=== PATIENT | male | born 1980 | race African-American/Black ===

== ENCOUNTER 2023-10-05 00:52 | Inpatient (IN) | payer OTHER ==
[2023-10-05] VITALS (20 sets, daily range): BP systolic 114–146; BP diastolic 59–100; PULSE 81–116; RESP 17–35; TEMP 97.5–98; O2SAT 92–100
[~2023-10-05] VITALS: Ht 165.1 cm; Wt 65.8 kg
[2023-10-05] MEDS: IPRATROPIUM 0.02% 0.5 MG/2.5 ML NEBU INH ONE (01:09)
[2023-10-05] MEDS: ALBUTEROL 0.083% 2.5 MG/3 ML NEBU INH ONE (01:10)
[2023-10-05 01:17] LABS: BASOPHILS # (AUTO) 0.1 K/uL (0.00-0.22); BASOPHILS % (AUTO) 0.8 % (0.0-2.0); EOSINOPHILS # (AUTO) 0.8 K/uL (0-0.4); EOSINOPHILS % (AUTO) 4.6 % (0.0-4.0); HEMATOCRIT 46.4 % (36-52); HEMOGLOBIN 15.6 g/dL (12.0-18.0); LYMPHOCYTES # (AUTO) 2.3 K/uL (2.0-11.5); LYMPHOCYTES % (AUTO) 12.9 % (20.5-51.1); MEAN CORPUSCULAR HEMOGLOBIN 32 pg (27-31); MEAN CORPUSCULAR HGB CONC 34 g/dL (33-37); MEAN CORPUSCULAR VOLUME 93.5 fL (80-94); MONOCYTES # (AUTO) 1.3 K/uL (0.8-1.0); MONOCYTES % (AUTO) 7.3 % (1.7-9.3); NEUTROPHILS # (AUTO) 13.4 K/uL (1.8-7.7); NEUTROPHILS % (AUTO) 74.4 % (42.2-75.2); PLATELET COUNT (AUTO) 340 K/uL (140-450); RED BLOOD CELL COUNT(AUTO) 4.97 MIL/uL (4.20-6.10)
[2023-10-05] MEDS: NACL 0.9% 1,000 ML IV ONE (01:24)
[2023-10-05] MEDS: MAG SULF 2000 MG/WATER PREMIX 50 ML IV ONE (01:24)
[2023-10-05] MEDS: methylPREDNISolone SS 125 MG/2 ML VIAL IVP ONE (01:25)
[2023-10-05 01:28] LABS: ANION GAP 12.7 (8-16); CALCIUM 8.4 mg/dL (8.5-10.1); CARBON DIOXIDE 28.9 mmol/L (21-32); CREATININE 1.3 mg/dL (0.6-1.3); POTASSIUM 4.6 mmol/L (3.5-5.1)
[2023-10-05] MEDS ORDERED: ALBU0.63 IH (04:22)
[2023-10-05] MEDS ORDERED: ACETAMINOPHEN 325 MG TAB PO PRN (05:50)
[2023-10-05] MEDS ORDERED: ONDANSETRON 4 MG/2 ML VIAL IVP PRN (05:50)
[2023-10-05] MEDS ORDERED: methylPREDNISolone SS 40 MG in WATER STERILE 1 ML IV SCH (06:00)
[2023-10-05] MEDS: ALBUTEROL 0.083% 2.5 MG/3 ML NEBU INH SCH (07:44)
[2023-10-05] MEDS: IPRATROPIUM 0.02% 0.5 MG/2.5 ML NEBU INH SCH (07:44)
[2023-10-05] MEDS: ALBUTEROL 0.083% 2.5 MG/3 ML NEBU INH PRN (09:23)
[2023-10-05] MEDS: ENOXAPARIN 40 MG/0.4 ML SYR SUBQ SCH (09:40)
[2023-10-05] MEDS ORDERED: NICOTINE TRANSD SYS 21 MG/24 HR PATCH TD SCH (11:00)
[2023-10-05] MEDS: methylPREDNISolone SS 40 MG/ML VIAL IVP SCH (23:17)
[2023-10-06] VITALS: BP 112/57; PULSE 80; RESP 18; TEMP 97; O2SAT 100
[2023-10-06 00:18] VITALS: PULSE 87
[2023-10-06 04:00] VITALS: BP 115/62; PULSE 67; RESP 18; TEMP 97; O2SAT 100
[2023-10-06 04:02] VITALS: PULSE 68
[2023-10-06 06:42] LABS: BASOPHILS % (AUTO) 0.2 % (0.0-2.0); HEMATOCRIT 42.4 % (36-52); HEMOGLOBIN 14.4 g/dL (12.0-18.0); LYMPHOCYTES # (AUTO) 0.9 K/uL (2.0-11.5); LYMPHOCYTES % (AUTO) 5.2 % (20.5-51.1); MEAN CORPUSCULAR HEMOGLOBIN 31 pg (27-31); MEAN CORPUSCULAR HGB CONC 34 g/dL (33-37); MEAN CORPUSCULAR VOLUME 92.1 fL (80-94); MONOCYTES # (AUTO) 0.8 K/uL (0.8-1.0); MONOCYTES % (AUTO) 4.5 % (1.7-9.3); NEUTROPHILS # (AUTO) 15.5 K/uL (1.8-7.7); NEUTROPHILS % (AUTO) 90.1 % (42.2-75.2); PLATELET COUNT (AUTO) 327 K/uL (140-450); RED BLOOD CELL COUNT(AUTO) 4.61 MIL/uL (4.20-6.10); RED CELL DISTRIBUTION WIDTH 14.5 % (11.6-13.7); WHITE BLOOD COUNT (AUTO) 17.2 K/uL (4.8-10.8)
[2023-10-06 07:45] VITALS: PULSE 70; RESP 20; O2SAT 98
[2023-10-06 07:46] LABS: ALBUMIN 3.6 g/dL (3.4-5.0); ANION GAP 12.9 (8-16); CALCIUM 8.9 mg/dL (8.5-10.1); CARBON DIOXIDE 26.9 mmol/L (21-32); CREATININE 0.9 mg/dL (0.6-1.3); MAGNESIUM 2.3 mg/dL (1.8-2.4); POTASSIUM 4.8 mmol/L (3.5-5.1); TOTAL BILIRUBIN 0.2 mg/dL (0.0-1.0); TOTAL PROTEIN, SERUM 7.3 g/dL (6.4-8.2)
[2023-10-06 08:00] VITALS: BP 109/65
[2023-10-06] MEDS ORDERED: NICOTINE TRANSD SYS 14 MG/24 HR PATCH TD SCH ×2 (09:00)
[2023-10-06] MEDS: NICOTINE TRANSD SYS 21 MG/24 HR PATCH TD SCH (10:44)
[2023-10-06] MEDS ORDERED: ALBU0.63 IH (11:59)
[2023-10-06] MEDS ORDERED: PRED20TA5 PO (11:59)
[2023-10-06] MEDS ORDERED: NICO-532 TD (11:59)
== END 2023-10-06 16:30 | disposition home or self-care (01) | DRG 133 ==
LOC: MED 00:52 → MTU 05:55 → MIC 08:22 → MTU 18:54
PROVIDERS: ADMIT Internal Medicine; ATTEND Internal Medicine
PROC: 5A09357 Assistance with Respiratory Ventilation, Less than 24 Consecutive Hours, Continuous Positive Airway Pressure (ICD-10-PCS; principal; 2023-10-05)
PROC: 5A0935A Assistance with Respiratory Ventilation, Less than 24 Consecutive Hours, High Flow/Velocity Cannula (ICD-10-PCS; 2023-10-05)
DX: J96.01 Acute respiratory failure with hypoxia (principal); J45.901 Unspecified asthma with (acute) exacerbation; F17.200 Nicotine dependence, unspecified, uncomplicated; D72.829 Elevated white blood cell count, unspecified; F14.10 Cocaine abuse, uncomplicated
CPT/HCPCS: 36415; 71045; 80048; 80053; 83735; 85025; 87081; 93005; 94640; 94660; 96365; 96366; 96375; 99291; J1650; J2920; J2930; J3475; J7613; J7644; Q0092